=== PATIENT | female | born 1970 | race American Indian/Alaskan Native ===

== ENCOUNTER → 2020-08-27 17:02 | Outpatient (CLI) | payer OTHER, SELFPAY ==
[2020-08-27 17:59] LABS: Blood Urea Nitrogen 22 mg/dL (7-17); Calcium 9.1 mg/dL (8.4-10.2); Carbon Dioxide 30 mmol/L (22-32); Chloride 108 mmol/L (98-107); Estimated Glomerular Filt Rate > 60.0 mL/min (>60); Glucose 84 mg/dL (70-100); HEMOLYSIS < 15 (0-50); Sodium 140 mmol/L (137-145)
[2020-08-27 18:12] LABS: Add Manual Diff / Slide Review NO; Basophils Absolute Auto 0 /uL (0-100); Basophils Percent Auto 0.6 % (0-2); Eosinophils Absolute Auto 200 /uL (0-450); Eosinophils Percent Auto 2.2 % (2-4); Hematocrit 42.2 % (36-46); Lymphocytes Absolute Auto 1200 /uL (1100-4500); Lymphocytes Percent Auto 16.6 % (25-40); Mean Corpuscular HGB Conc 33.2 % (30-36); Mean Corpuscular Volume 87.4 fL (80-100); Monocytes Absolute Auto 700 /uL (0-900); Monocytes Percent Auto 9.2 % (3-14); Neutrophils Absolute Auto 5200 /uL (1500-7000); Neutrophils Percent Auto 71.4 % (50-75); Platelet Count 282 X10^3/uL (150-400); Red Blood Cell Count 4.82 X10^6/uL (4.0-5.2); Red Cell Distribution Width 14.6 % (11.6-14.8); White Blood Cell Count 7.3 X10^3/uL (4.5-11.0)
[2020-08-27 18:18] LABS: Hemoglobin A1C% w Est Avg Glu 5.1 % (4.0-6.0)
== END ==
PROVIDERS: PCP Family Medicine; Referring Provider Orthopaedic Surgery Adult Reconstructive Orthopaedic Surgery; Visit Provider Orthopaedic Surgery Adult Reconstructive Orthopaedic Surgery
DX: Z01.818 Encounter for other preprocedural examination (principal); Z01.812 Encounter for preprocedural laboratory examination; R73.9 Hyperglycemia, unspecified
CPT/HCPCS: 36415; 80048; 83036; 85025; 93005; 93010

== ENCOUNTER → 2020-09-04 13:05 | Outpatient (CLI) | payer OTHER, SELFPAY ==
[2020-09-04 13:56] LABS: COVID19 -Nasal RAPID Negative (Negative)
== END ==
PROVIDERS: PCP Family Medicine; Visit Provider Student in an Organized Health Care Education/Training Program
DX: Z20.822 Contact with and (suspected) exposure to COVID-19 (principal)
CPT/HCPCS: 87635

== ENCOUNTER 2020-09-06 10:10 | Observation (INO) | payer OTHER, SELFPAY ==
[2020-09-05] VITALS (21 sets, daily range): BP systolic 99–126; BP diastolic 50–88; PULSE 76–109; RESP 8–16; TEMP 36.2–37.3; O2SAT 90–100; BMI 36.3
--- NOTE | 2020-09-05 | DI.RAD.S_ITS ---
PROCEDURE: XR HIP W PEL IF DONE RT 2V INDICATIONS: RIGHT HIP ORIF TECHNIQUE: 2 intraoperative views of the hip were acquired. COMPARISON: [facility], CR, XR HIP 2 VIEWS RIGHT, 08/22/2020, 13:06. FINDINGS: 3 screw spanning the right femoral neck are in the expected position. IMPRESSION: Satisfactory appearance of the right hip ORIF. Dictated by: Enrique Barrera M.D. on 09/05/2020 at 14:57 Approved by: Enrique Barrera M.D. on 09/05/2020 at 14:59
[2020-09-05] MEDS: ACETAMINOPHEN 325 MG TABLET 975 MG PO ×2 (11:59→19:19)
[2020-09-05] MEDS: LACTATED RINGERS 1,000 ML 42 ML IV (12:01)
--- NOTE | 2020-09-05 12:49 | PM.PREOP ---
Pre-operative Note COVID-19 COVID-19 status: Negative Result date/Date tested (Pos, Neg/Pending): 09/04/20 Interval Note History & Physical reviewed/Exam performed by Physician: Yes Changes to H&P: No H&P completed within 30 days and has changed as indicated here:: Plan for right hip cannulated screws for femoral neck fracture
[2020-09-05] MEDS: CEFAZOLIN 2 GM/100 ML FROZ.PIGGY IV (13:03)
--- NOTE | 2020-09-05 13:51 | SUR.OPER ---
Supine on padded [place] table with right leg secured in padded positioning boot and suspended in positioning spar, operative leg in traction per surgeon. Left leg in padded well leg morley and secured. Head on one pillow. Arm on non-operative side secured on padded armboard <90 degrees abduction. Arm on operative side padded and resting across chest then secured with tape over sheet. Padded perineal post in place per surgeon.
--- NOTE | 2020-09-05 14:42 | P.OP_ITS ---
Operative Date/Time/Diagnoses Date of procedure: 09/05/20 Time of procedure: 14:42 Pre-op diagnosis: right femoral neck stress fracture Procedure & Clinicians Procedure: right hip cannualted hip pinning Same procedure as scheduled: Yes Indications: right hip stress fx Anesthesia Type: General Operative Notes Findings: Nondisplaced femoral neck fracture Specimen(s): none sent Prosthetic devices, grafts, tissues, transplants, or devices: 1x 7.3mm x 80mm screw 2x 7.3mm x 70mm screw Estimated Blood Loss (mL): 50 Procedure in detail: Patient was met in the preoperative holding area where the site and side of surgery were marked by . informed consent had been reviewed in clinic was also reviewed the preoperative holding area. All last minute questions were answered. Patient was then brought back in the operating room and placed on [place] table. Patient was induced under general anesthesia. The right foot was then placed in a well-padded [place] table boot and the left leg was then pressed placed in the well leg morley. Fluoroscopy was brought in to verify positioning. The right hip was then prepped and draped in normal sterile fashion. A 5 cm long incision in line with the long axis of the femur just distal to the greater trochanter was made in the skin using 10. Blade a new 10. Blade was then used to split the ITB band and blunt dissection was carried down to the lateral aspect of the femur. Initial wire placement was placed freehand under fluoroscopic guidance on both AP and tangential views. The 2nd 3rd screws were then placed through the aiming device. These were also verified on AP and lateral views. The most distal screw measured 80 mm in length and the proximal 2 screws measured 70 mm in length. The most distal screw was placed 1st I overdrilled the cortex with a drill followed by placement of the 80 mm long cannulated screw which had a long thread pattern not. Sec good purchase I then moved to the proximal 2 screws repeating the procedure but was 70 mm screws. Final fluoroscopic images were obtained the wound was thoroughly irrigated with normal saline the ITB band was then closed with interrupted 1. Vicryl and a deep fat suture of 1. Vicryl was then placed. Two Vicryl was then placed in subcutaneous tissue and judie on skin. Followed by an Aquacel dressing. Complications: none Post-operative Condition: stable Disposition: PACU Plan for aftercare: Partial weight bearing RLE, 24 horus psot-op abx
[2020-09-05] MEDS: HYDROMORPHONE 2 MG INJ IV ×4 (14:54→15:26)
[2020-09-05] MEDS: hydrOXYzine 50 MG/ML INJ 25 MG IM (15:07)
[2020-09-05] MEDS: OXYCODONE IR 5 MG TABLET PO ×2 (15:09→21:04)
--- NOTE | 2020-09-05 15:34 | SUR.PHASEI ---
report given to Evangelina Huerta RN
--- NOTE | 2020-09-05 16:26 | SUR.PHASEI ---
Attempted to call report x 3 . RN states she can not take report corridinator states she can not take report. pt has been ready to go upstairs for 35 minutes. Pt is stable and has been.
--- NOTE | 2020-09-05 16:59 | PC.NURSE ---
Addendum entered by [place] Vo R.N. 09/05/20 22:47: Up to commode with partial weight bearing precautions observed. Does c/o increase in right hip pain 10/10 with activity. Returned to bed and oxycodone administered. Limited improvement in pain to right hip so iv dilaudid administered. R.T. has completed I.S. teaching and begun to wean pt off of oxygen. Room air with sleep 90%. Replaced pt's oxygen @ 1L per nc. Addendum entered by [place] Vo R.N. 09/05/20 19:16: Pt wakens briefly for admission process, but then returns quickly to sleep. Unable to remain awake long enough to converse at any length. When asked, rates right hip pain 6/10. Will continue to monitor for wakefulness and less somnulence prior to medicating for pain. Original Note: Pt to room 222 from PACU drowsy, but rousable. Rouses easily to voice. Palpable pedal pulses BL with BL calf scd's in place. Denies nausea. Aquacel dressing dry and intact to right hip. Call light within pt's reach. Ice chips provided. 02 2L per NC d/t sedating meds in PACU to manage pain. Continuous pulse oximeter in place; 97%.
[2020-09-05] MEDS: LACTATED RINGERS 1,000 ML 125 ML IV (17:15)
[2020-09-05] MEDS: CEFAZOLIN 1 GM/50 ML FROZ.PIGGY IV (21:04)
[2020-09-05] MEDS: ASPIRIN EC 81 MG TABLET PO (21:04)
[2020-09-05 21:16] LABS: Hematocrit 41.2 % (36-46); Hemoglobin 13.5 g/dL (12.0-16.0)
[2020-09-05] MEDS: HYDROMORPHONE 0.5 MG INJ 0.2 MG IV (22:39)
[2020-09-06] MEDS: LACTATED RINGERS 1,000 ML 125 ML IV (00:23)
--- NOTE | 2020-09-06 00:32 | PC.NURSE ---
Addendum entered by Roz Rosario R.N. 09/06/20 05:44: Slept most of shift. Now awake and states pain in right hip is 6/10 and aches; medicated with Oxycodone and ice pack applied. Addendum entered by Roz Rosario R.N. 09/06/20 00:35: aquacel dressing is CDI; CMS is intact bilaterally. Original Note: patient is oriented but drowsy. Breath sounds CTA with sat of 95% on oxygen at 1L/min per NC. HRR. Denies nausea. BT present, abdomen is soft and patient states she has passed flatus since return from surgery. Up to [facility] with 1 assist and walker on previous shift (partial weight bearing on right LE) and able to void; denies dysuria, frequency or urgency. Able to move self in bed. Wearing bilateral calf SCD's. Denies pain at present time. Fall risk score is moderate; bed alarm activated for safety although patient has been calling for staff assistance appropriately.
[2020-09-06] MEDS: CEFAZOLIN 1 GM/50 ML FROZ.PIGGY IV (04:55)
[2020-09-06 05:39] VITALS: BP 99/64; PULSE 84; RESP 18; TEMP 36.6; O2SAT 95
[2020-09-06] MEDS: OXYCODONE IR 5 MG TABLET PO ×3 (05:40→16:21)
[2020-09-06 05:41] LABS: Hematocrit 36.1 % (36-46); Mean Corpuscular HGB Conc 33.4 % (30-36); Mean Corpuscular Hemoglobin 28.7 PG (26-34); Platelet Count 278 X10^3/uL (150-400); Red Cell Distribution Width 14.2 % (11.6-14.8); White Blood Cell Count 7.9 X10^3/uL (4.5-11.0)
[2020-09-06] MEDS: ASPIRIN EC 81 MG TABLET PO ×2 (08:16→20:01)
[2020-09-06] MEDS: ACETAMINOPHEN 325 MG TABLET 975 MG PO ×3 (08:17→20:01)
[2020-09-06 08:30] VITALS: BP 100/63; PULSE 88; RESP 14; TEMP 36.7; O2SAT 96
--- NOTE | 2020-09-06 09:45 | P.PN_ITS ---
Subjective Subjective Date Patient Seen: 09/06/20 Interval history: Patient is POD# 1 s/p right hip cannulated hip pinning of nondisplaced femoral neck fracture with Dr. Carmen. Pain moderate, mostly relieved with Oxycodone. Patient has been OOB to bedside commode, otherwise has not mobilized with PT. Has voided appropriately. Tolerating a diet. No chest pain, shortness of breath, nausea or vomiting. Exam Vital Signs (past 8 hours): - 09/06/20 05:39 09/06/20 08:30 Temperature 97.9 F 98.1 F Pulse Rate 84 88 Respiratory Rate 18 14 Blood Pressure 99/64 100/63 Pulse Oximetry 95 96 Oxygen Delivery Method Nasal Cannula Oxygen Flow Rate 0 Narrative Exam Narrative: 50 year old female resting in bed, alert and oriented in no acute distress. Aquacel dressing is CDI. Patient able to dorsiflex and plantar flex the ankle. Calves are soft, nontender bilaterally. Palpable pedal pulse. Objective Labs Result Diagrams: 09/06/20 05:30 Labs: Laboratory Results - last 24 hr 09/05/20 09/06/20 21:04 05:30 WBC 7.9 RBC 4.20 Hgb 13.5 12.0 Hct 41.2 36.1 MCV 86.0 MCH 28.7 MCHC 33.4 RDW 14.2 Plt Count 278 PFSH Medical History Abdominal hernia Surgical History History of laparoscopic cholecystectomy Social History household members: family and children Smoking Status: Never smoker alcohol intake: current Assessment & Plan Assessment & Plan narrative: -POD# 1 s/p right hip cannulated hip pinning of nondisplaced femoral neck fracture. -Partial weight bearing of 50% on the right lower extremity x6 weeks. -DVT prophylaxis ASA 81mg BID x6 weeks. -Oxycodone 10mg Q3hrs added for severe pain as well as Vistaril 25mg Q3hrs for muscle spasms. -Will convert patient to observation as she has not mobilized well yet with PT and has restriction to her weightbearing status. She does have directional drill operator available at home, expect discharge to home tomorrow. Quality VTE Deep Vein Thrombosis/Pulmonary Embolism Present on Admission: No
[2020-09-06] MEDS: OXYCODONE IR 5 MG TABLET 10 MG PO ×2 (10:53→19:04)
--- NOTE | 2020-09-06 11:28 | PT.IIE ---
Current Diagnoses Stress fracture, unspecified femur, initial encounter for fracture (09/05/20) Surgery Performed Operation Date: 09/05/20 13:00 Actual Procedures p ORIF Hip/Cannulated Screws(Right) - Sudhir Carmen MD Surgical History (Last Reviewed 09/06/20 @ 10:24 by Nel Galdamez PA-C) History of laparoscopic cholecystectomy Medical History (Last Reviewed 09/06/20 @ 10:24 by Nel Galdamez PA-C) Abdominal hernia Physical Therapy Inpatient Evaluation/Re-Eval M1 PT/OT-IP Prior Functional Status Start: 09/06/20 13:51 Freq: NEEDED Status: Active Protocol: Document 09/06/20 11:28 AB (Rec: 09/06/20 14:34 AB [id number]) Medical Review Prior Functional Status Medical History Reviewed Yes Communication able to make needs known Mobility and Gait pt stated that she is independent with all mobilities and ambulation without AD Social History Household Members family,children Living Arrangements House Number of Floors (Floors) One Floor Number of Stairs To Enter/Railing? 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 M2 PT-IP Current Condition Start: 09/06/20 13:51 Freq: NEEDED Status: Active Protocol: Document 09/06/20 11:28 AB (Rec: 09/06/20 14:34 AB [id number]) Physical Therapy Current Condition Current Condition Evaluation Date 09/06/20 Treatment Diagnosis R femoral neck fx s/p pinning; difficulty in walking Onset Date 09/05/20 Weight Bearing Status Weight Bearing Status Partial Weight Bearing Allowed Weight Bearing Amount (enter % RLE 50% PWB or #) (%) M3 PT-IP Subjective Start: 09/06/20 13:51 Freq: NEEDED Status: Active Protocol: Document 09/06/20 11:28 AB (Rec: 09/06/20 14:34 AB [id number]) Subjective Physical Therapy Visit Type Type Initial Evaluation Visit Start Time 11:28 Visit Stop Time 11:57 Total Visit Minutes 29 Number of SOD CUTTER Visits 0 Physical Therapy Visit Comments Patient Comments pt is agreeable to do PT Therapy Pain Assessment Pain When Pain Assessed At Rest Pain Present Pain Present Pain Reported Location right hip Intensity 4 Scale Used Numeric (0 - 10) Pain Management Techniques Modification of Treatment,Re- positioning,Timing of Activity with Medications M4 PT-IP Mobility and Gait Start: 09/06/20 13:51 Freq: NEEDED Status: Active Protocol: Document 09/06/20 11:28 AB (Rec: 09/06/20 14:34 AB [id number]) PT-Bed Mobility Assessment Supine to Sit Supine to Sit Standby Assistance PT-Transfer Assessment Sit to and From Stand Sit to and from Stand Minimal Assistance,1 Person Assistance,Use of Upper Extremities Equipment Transfer Assistive Device Gait Belt,Front Wheeled Walker Orthotic/Prosthetic Devices or Brace: No Transfers Transfer Destination Chair Transfer Technique Stand Step Pivot Transfer Ability Level of Assist Minimal Assistance,1 Person Assistance,Use of Upper Extremities Comments Mobility Comments educated on weight bearing restriction of 50% PWB. pt completed supine to sit min a and cues x 2 attempts to complete. pt was able to sit on EOB SBA. completed sit to stand min A PWB on RLE. completed step transfer using FWW to chair min A and cues. positioned pt on the chair and set up for lunch. pt stated that she is tired. set up caregiver training with pt and daughter at 1030 am tomorrow. pt stated that she will call her daughter. PT-Balance Assessment Sitting Balance and Reactions Static Sitting Balance Ability Good Dynamic Sitting Balance Ability Good Standing Balance and Reactions Static Standing Balance Ability Fair Dynamic Standing Balance Ability Fair Device Used FWW M5 PT-IP Objective Assessments Start: 09/06/20 13:51 Freq: NEEDED Status: Active Protocol: Document 09/06/20 11:28 AB (Rec: 09/06/20 14:34 AB [id number]) Orientation Orientation/Cognition Level of Alertness Alert Orientation Name Language Function Ability No Deficits Noted Safety Awareness Understands Safety Issues Memory Description No Deficits Noted Gross Range of Motion Lower Extremity ROM Assessment Within Functional Limits Strength Lower Extremity Strength Assessment Right Impaired Hip 3-/5 Knee 3+/5 Coordination Assessment Gross Coordination Gross Coordination WNL Sensation Assessment Sensation Gross Sensation WNL Muscle Tone Muscle Tone WNL Yes M6 PT-IP Treatment Start: 09/06/20 13:51 Freq: NEEDED Status: Active Protocol: Document 09/06/20 11:28 AB (Rec: 09/06/20 14:34 AB [id number]) Physical Therapy Treatment Exercises Exercises Heel Slides Education Education Provided Precautions,Weight Bearing Status,Post-Op Packet,Safety M7 PT-IP Assessment and Plan Start: 09/06/20 13:51 Freq: NEEDED Status: Active Protocol: Document 09/06/20 11:28 AB (Rec: 09/06/20 14:34 [id number]) PT Summary Assessment and Plan Potential Rehabilitation Potential Good Status of Condition at Evaluation Stable Summary Impairments Pain,ROM,Strength,Balance, Coordination,Sensation,Tone, Cognition,Bed Mobility, Transfers,Gait,Activity Tolerance Assessment Summary pt requiring min A with mobility. set up caregiver training for tomorrow at 1030am with pt and pt's daughter. pt will require HHPT and eventually outpt PT. will continue to assess progress. Goals Bed Mobility Goal Independent Transfer Goal Independent,Front Wheeled Walker Gait Goal Independent,Front Wheel Walker Gait Distance 50 Days to Meet Goals 5 Frequency of Treatment Frequency Of Treatment Twice a Day Treatment Plan Physical Therapy Treatment Plan Bed Mobility Training,Transfer Training,Gait Training, Therapeutic Exercise,Balance Retraining,Post Op Education, Discharge Planning,Hot or Cold Pack,Neuromuscular Re-ed, Coordination Retraining,Manual Therapy Other Recommendations and Next Treatment ambulation; caregiver training Focus 09/07/20 @ 1030 am Recommendations To Nursing Amount of Assist Needed 1 Person Assist Discharge Recommendations PT Discharge Recommendations Home with Assistance,Home Health Transportation Needs at Discharge Private Vehicle
--- NOTE | 2020-09-06 14:15 | CM.DANOTE ---
Discharge Planning/Care Management DCP: assessment: case received, EMR reviewed and met with pt. Introduced self and role. She is found sitting up in bedside chair, knitting. Appears comfortable. Pt is a 50 year old female who admitted yesterday for a scheduled Surgery: R hip pinning: Surgeon: Dr. Carmen. Payer: [facility] and [facility]. PCP: Kely Tanner Pt today is post op day one: Pt has worked with her. OT order is obtained. Pt confirms her plan is for home with her daughter Radha's assist. She has crutches at home. Is currently using a FWW. Radha will be here tomorrow morning for caregiver training. Pt reports this is an extension of an L&I claim for injury that happened in March. She works at the [employer]. She requested info re how to followup in terms of getting clinical records to her insurance and says they have mailed information re this to her home. She is provided the direct line to Medical Records dept and will follow up on this once she gets home and receives the letter. P: home when stable, likely tomorrow after more therapy and caregiver training. CM Discharge Assessment Start: 09/06/20 14:13 Freq: Status: Active Protocol: Document 09/06/20 14:13 ITV (Rec: 09/06/20 14:15 ITV [id number]) Discharge Planning Assessment Advance Directives? No History Provided By Patient,Medical Record Has Patient been admitted in last 30 No days? Prior Living Arrangements House Household Members family,children Comment Lives with daughter Radha [facility]: [phone] Independent with ADL's Yes Is patient alert and oriented? Yes Discharge Plan Home
--- NOTE | 2020-09-06 14:57 | PT.IPTN ---
Current Diagnoses Stress fracture, unspecified femur, initial encounter for fracture (09/05/20) Surgery Performed Operation Date: 09/05/20 13:00 Actual Procedures p ORIF Hip/Cannulated Screws(Right) - Sudhir Carmen MD Physical Therapy Treatment Note M2 PT-IP Current Condition Start: 09/06/20 13:51 Freq: NEEDED Status: Active Protocol: Document 09/06/20 11:28 AB (Rec: 09/06/20 14:34 AB [id number]) Physical Therapy Current Condition Current Condition Evaluation Date 09/06/20 Treatment Diagnosis R femoral neck fx s/p pinning; difficulty in walking Onset Date 09/05/20 Weight Bearing Status Weight Bearing Status Partial Weight Bearing Allowed Weight Bearing Amount (enter % RLE 50% PWB or #) (%) M3 PT-IP Subjective Start: 09/06/20 13:51 Freq: NEEDED Status: Active Protocol: Document 09/06/20 14:57 AB (Rec: 09/06/20 16:09 AB [id number]) Subjective Physical Therapy Visit Type Type Treatment Note Visit Start Time 14:57 Visit Stop Time 15:24 Total Visit Minutes 27 Number of SHOER Visits 0 Physical Therapy Visit Comments Patient Comments pt is agreeable to do PT Therapy Pain Assessment Pain When Pain Assessed At Rest Pain Present Pain Present Pain Reported Location right hip Intensity 4 Scale Used Numeric (0 - 10) Pain Management Techniques Apply Cold,Modification of Treatment,Re-positioning, Timing of Activity with Medications M4 PT-IP Mobility and Gait Start: 09/06/20 13:51 Freq: NEEDED Status: Active Protocol: Document 09/06/20 14:57 AB (Rec: 09/06/20 16:09 AB [id number]) PT-Bed Mobility Assessment Sit to Supine Sit to Supine Standby Assistance PT-Transfer Assessment Sit to and From Stand Sit to and from Stand Contact Guard Assistance,Use of Upper Extremities Equipment Transfer Assistive Device Gait Belt,Front Wheeled Walker Orthotic/Prosthetic Devices or Brace: No Transfers Transfer Destination Bed,Toilet Transfer Technique ambulated using FWW Transfer Ability Level of Assist Contact Guard Assistance,1 Person Assistance,Use of Upper Extremities Comments Mobility Comments completed sit to stand from chair CGA and ambulated to the toilet using FWW CGA. pt is able to ambulate with PWB on RLE with cues to maintain heel off floor and use UE more for support and LLE. pt completed toileting and was able to do hygiene care in sitting position. completed sit to stand CGA and ambulated to the sink using FWW CGA. was able to maintain standing CGA while completing handwashing. requested to go back to bed and ambulated to the bed using FWW CGA. completed sit to supine SBA and cues. required increase time to complete task. positioned pt in bed. call light and table placed within reach. educated pt on safety and will use w/c for long distance mobility. Gait Assessment Gait Gait Assistance Required: Contact Guard Assist Distance (Feet) 12 Able to Maintain Weight Bearing Status Yes During Gait Assistive Devices Assistive Device Gait Belt,Front Wheeled Walker Orthotic/Prosthetic Devices or Brace: No Gait Deviations General Gait Pattern Decreased Stride Length, Decreased Feet Clearance Factors Limiting Gait Function Factors Limiting Gait Function Decreased Activity Tolerance, Decreased Strength,Limited Range of Motion,Pain,Poor Balance M5 PT-IP Objective Assessments Start: 09/06/20 13:51 Freq: NEEDED Status: Active Protocol: Document 09/06/20 11:28 AB (Rec: 09/06/20 14:34 AB [id number]) Orientation Orientation/Cognition Level of Alertness Alert Orientation Name Language Function Ability No Deficits Noted Safety Awareness Understands Safety Issues Memory Description No Deficits Noted Gross Range of Motion Lower Extremity ROM Assessment Within Functional Limits Strength Lower Extremity Strength Assessment Right Impaired Hip 3-/5 Knee 3+/5 Coordination Assessment Gross Coordination Gross Coordination WNL Sensation Assessment Sensation Gross Sensation WNL Muscle Tone Muscle Tone WNL Yes M6 PT-IP Treatment Start: 09/06/20 13:51 Freq: NEEDED Status: Active Protocol: Document 09/06/20 14:57 AB (Rec: 09/06/20 16:09 AB [id number]) Physical Therapy Treatment Education Education Provided Precautions,Weight Bearing Status,Safety M7 PT-IP Assessment and Plan Start: 09/06/20 13:51 Freq: NEEDED Status: Active Protocol: Document 09/06/20 14:57 AB (Rec: 09/06/20 16:09 AB [id number]) PT Summary Assessment and Plan Potential Rehabilitation Potential Good Summary Impairments Pain,ROM,Strength,Balance,Bed Mobility,Transfers,Gait, Activity Tolerance Progress Towards Goals Progressing Toward Goals Assessment Summary pt is progressing with mobility but limited due to weight bearing restriction but able to follow directions. caregiver training set up for tomorrow at 1030 am. pt may go home with caregiver assist and will benefit from HHPT/ outpt PT. Goals Bed Mobility Goal Independent Transfer Goal Independent,Front Wheeled Walker Gait Goal Independent,Front Wheel Walker Gait Distance 50 Days to Meet Goals 5 Frequency of Treatment Frequency Of Treatment Twice a Day Treatment Plan Physical Therapy Treatment Plan Bed Mobility Training,Transfer Training,Gait Training, Therapeutic Exercise,Balance Retraining,Post Op Education, Discharge Planning,Hot or Cold Pack,Neuromuscular Re-ed, Coordination Retraining,Manual Therapy Other Recommendations and Next Treatment ambulation; caregiver training Focus 09/07/20 @ 1030 am Recommendations To Nursing Amount of Assist Needed 1 Person Assist Discharge Recommendations PT Discharge Recommendations Home with Assistance,Home Health Transportation Needs at Discharge Private Vehicle
[2020-09-06 15:20] VITALS: BP 104/69; PULSE 88; RESP 20; TEMP 36.8; O2SAT 96
[2020-09-06 19:30] VITALS: BP 116/60; PULSE 97; RESP 18; TEMP 36.8; O2SAT 96
[2020-09-06] MEDS: hydrOXYzine pamoate 25 MG CAPSULE PO (20:04)
[2020-09-07 00:15] VITALS: BP 101/69; PULSE 78; RESP 16; TEMP 36.4; O2SAT 95
--- NOTE | 2020-09-07 00:20 | PC.NURSE ---
patient is alert and oriented. Breath sounds CTA with RA sat of 95%. HRR. Denies nausea. BT present and abdomen is soft; passing flatus. Denies dysuria, frequency or urgency with urination. Able to move self in bed. Up to bathroom with walker and 1 assist; states she is adhering to PWB on right LE. Aquacel dressing is CDI. CMS is intact except patient only able to lift right LE slightly off bed. Non pitting edema in right foot noted. States pain is currently 2/10 and tolerable; has ice pack to hip. Fall risk score is moderate; bed alarm is activated.
[2020-09-07 05:19] VITALS: BP 118/73; PULSE 78; RESP 16; TEMP 36; O2SAT 96
[2020-09-07 07:00] VITALS: BP 118/73; PULSE 91; RESP 16; TEMP 37; O2SAT 93
[2020-09-07] MEDS: OXYCODONE IR 5 MG TABLET PO ×2 (08:47→12:20)
[2020-09-07] MEDS: SODIUM CHLORIDE 0.9% FLUSH 10 ML IV (08:47)
[2020-09-07] MEDS: ACETAMINOPHEN 325 MG TABLET 975 MG PO (08:48)
[2020-09-07] MEDS: ASPIRIN EC 81 MG TABLET PO (08:48)
--- NOTE | 2020-09-07 10:17 | PM.PN.1 ---
Exam Vital Signs (past 8 hours): - 09/07/20 05:19 09/07/20 07:00 Temperature 96.8 F L 98.6 F Pulse Rate 78 91 H Respiratory Rate 16 16 Blood Pressure 118/73 118/73 Pulse Oximetry 96 93 Oxygen Delivery Method Room Air Oxygen Flow Rate 0 Objective Labs Result Diagrams: 09/06/20 05:30 [facility] Medical History Abdominal hernia Surgical History History of laparoscopic cholecystectomy Social History household members: family and children Smoking Status: Never smoker alcohol intake: current Assessment & Plan Assessment & Plan narrative: Patient is admitted after surgery. Patient has been stable and progressing with physical therapy. Patient is neurovascularly intact on exam. Patient has no signs or symptoms of DVT. Patient's dressing is clean dry and intact. Will plan for discharge today to home. Quality VTE Deep Vein Thrombosis/Pulmonary Embolism Present on Admission: No
--- NOTE | 2020-09-07 11:40 | PT.IPTN ---
Current Diagnoses Stress fracture, unspecified femur, initial encounter for fracture (09/06/20) Surgery Performed Operation Date: 09/05/20 13:00 Actual Procedures p ORIF Hip/Cannulated Screws(Right) - Sudhir Carmen MD Physical Therapy Treatment Note M2 PT-IP Current Condition Start: 09/06/20 13:51 Freq: NEEDED Status: Active Protocol: Document 09/06/20 11:28 AB (Rec: 09/06/20 14:34 AB [id number]) Physical Therapy Current Condition Current Condition Evaluation Date 09/06/20 Treatment Diagnosis R femoral neck fx s/p pinning; difficulty in walking Onset Date 09/05/20 Weight Bearing Status Weight Bearing Status Partial Weight Bearing Allowed Weight Bearing Amount (enter % RLE 50% PWB or #) (%) M3 PT-IP Subjective Start: 09/06/20 13:51 Freq: NEEDED Status: Active Protocol: Document 09/07/20 11:36 AW (Rec: 09/07/20 11:46 AW [id number]) Subjective Physical Therapy Visit Type Type Treatment Note Visit Start Time 11:18 Visit Stop Time 11:36 Total Visit Minutes 18 Notes Pt's daughter, Lenora, present for CGT. 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 Therapy Pain Assessment Pain When Pain Assessed During Mobility Pain Present Pain Present Pain Reported Location right hip Intensity 5 Scale Used Numeric (0 - 10) Pain Management Techniques Apply Cold,Modification of Treatment,Re-positioning, Timing of Activity with Medications M4 PT-IP Mobility and Gait Start: 09/06/20 13:51 Freq: NEEDED Status: Active Protocol: Document 09/07/20 11:36 AW (Rec: 09/07/20 11:46 AW [id number]) PT-Bed Mobility Assessment Supine to Sit Supine to Sit Standby Assistance Sit to Supine Sit to Supine Standby Assistance Scooting Scooting to Edge of Bed Standby Assistance PT-Transfer Assessment Sit to and From Stand Sit to and from Stand Contact Guard Assistance,Use of Upper Extremities Equipment Transfer Assistive Device Gait Belt,Front Wheeled Walker Orthotic/Prosthetic Devices or Brace: No Transfers Transfer Destination Bed,Toilet Transfer Technique ambulated using FWW Transfer Ability Level of Assist Contact Guard Assistance,1 Person Assistance,Use of Upper Extremities Comments Mobility Comments Pt getting up with RN to use toilet as PT arrived. PT took over and assisted pt to toilet with FWW SBA. Pt able to maintain 50% PWB RLE with toe- touch strategy. Pt transferred to and from the toilet using left-side grab bar CGA and stated she has grab bars around toilet at home. Pt's daughter provided assist to get off the toilet and then helped the pt ambulate around the room and to the sink to wash hands. In standing, pt instructed not to lean toward her right side when without UE support on sink or walker. Pt then ambulated CGA with FWW to the bed and completed sit < > supine with use of LLE to lift RLE SBA. Pt was left sitting EOB with her daughter in the room. Gait Assessment Gait Gait Assistance Required: Standby Assistance,Contact Guard Assist Distance (Feet) 25 Able to Maintain Weight Bearing Status Yes During Gait Assistive Devices Assistive Device Gait Belt,Front Wheeled Walker Orthotic/Prosthetic Devices or Brace: No Gait Deviations General Gait Pattern Decreased Stride Length, Decreased Feet Clearance Factors Limiting Gait Function Factors Limiting Gait Function Decreased Activity Tolerance, Decreased Strength,Limited Range of Motion,Pain,Poor Balance Comments Gait Comments Pt's daughter able to provide appropriate level of assist. Stair Climbing Assessment Comments Stair Climbing Comments No stairs at home. PT-Balance Assessment Sitting Balance and Reactions Static Sitting Balance Ability Good Dynamic Sitting Balance Ability Good Standing Balance and Reactions Static Standing Balance Ability Good Dynamic Standing Balance Ability Fair Device Used FWW M5 PT-IP Objective Assessments Start: 09/06/20 13:51 Freq: NEEDED Status: Active Protocol: Document 09/06/20 11:28 AB (Rec: 09/06/20 14:34 AB [id number]) Orientation Orientation/Cognition Level of Alertness Alert Orientation Name Language Function Ability No Deficits Noted Safety Awareness Understands Safety Issues Memory Description No Deficits Noted Gross Range of Motion Lower Extremity ROM Assessment Within Functional Limits Strength Lower Extremity Strength Assessment Right Impaired Hip 3-/5 Knee 3+/5 Coordination Assessment Gross Coordination Gross Coordination WNL Sensation Assessment Sensation Gross Sensation WNL Muscle Tone Muscle Tone WNL Yes M6 PT-IP Treatment Start: 09/06/20 13:51 Freq: NEEDED Status: Active Protocol: Document 09/07/20 11:36 AW (Rec: 09/07/20 11:46 AW [id number]) Physical Therapy Treatment Exercises Exercises Gluteal Sets,Heel Slides Education Education Provided Weight Bearing Status,Safety M7 PT-IP Assessment and Plan Start: 09/06/20 13:51 Freq: NEEDED Status: Active Protocol: Document 09/07/20 11:36 AW (Rec: 09/07/20 11:46 AW [id number]) PT Summary Assessment and Plan Potential Rehabilitation Potential Good Summary Impairments Pain,ROM,Strength,Balance,Bed Mobility,Transfers,Gait, Activity Tolerance Progress Towards Goals Progressing Toward Goals Assessment Summary Pt is able to follow directions and maintain 50% PWB RLE during transfers and ambulation. Daughter Lucia was present for caregiver training and was able to don gait belt and provide appropriate level of safe assist. All questions answered about home mobility and FWW sizing. Pt is safe for discharge home with family assist and HH. Goals Bed Mobility Goal Independent Transfer Goal Independent,Front Wheeled Walker Gait Goal Independent,Front Wheel Walker Gait Distance 50 Days to Meet Goals 4 Frequency of Treatment Frequency Of Treatment Discharge Treatment Plan Physical Therapy Treatment Plan Bed Mobility Training,Transfer Training,Gait Training, Therapeutic Exercise,Balance Retraining,Post Op Education, Discharge Planning,Hot or Cold Pack,Neuromuscular Re-ed, Coordination Retraining,Manual Therapy Recommendations To Nursing Amount of Assist Needed 1 Person Assist Discharge Recommendations PT Discharge Recommendations Home with Assistance,Home Health Transportation Needs at Discharge Private Vehicle
--- NOTE | 2020-09-07 12:31 | PC.NURSE ---
Pt and daughter had caregiver training with PT today, and cleared for d/c. Discharge education given to pt, discussed- toe touch weight bearing precautions, hip precautions, f/u appts, s/s of infection, medication safety, and reasons to contact medical professional. Pt dressed with CLINICAL RN's assistance. IV removed, intact. All belongings, including printed prescriptions sent with pt. Pt left via w/c by CLINICAL RN to daughter's POV.
== END 2020-09-07 12:33 | disposition home or self-care (01) ==
LOC: OR 09-07 09:01 → AC 09-07 09:01
PROVIDERS: Admitting Provider Orthopaedic Surgery Adult Reconstructive Orthopaedic Surgery; PCP Family Medicine; Referring Provider Orthopaedic Surgery Adult Reconstructive Orthopaedic Surgery; Visit Provider Orthopaedic Surgery Adult Reconstructive Orthopaedic Surgery
PROC: (CPT 27236; principal; 2020-09-05 13:00)
DX: M84.351A Stress fracture, right femur, initial encounter for fracture (principal); W01.0XXA Fall on same level from slipping, tripping and stumbling without subsequent striking against object, initial encounter; Y93.E9 Activity, other interior property and clothing maintenance; Y92.9 Unspecified place or not applicable; Y99.0 Civilian activity done for income or pay
CPT/HCPCS: 27236; 36415; 73502; 76000; 85014; 85018; 85027; 94760; 97161; 97530; G0378; J0690; J1100; J1170; J2250; J2405; J2704; J3010; J3410

== ENCOUNTER 2023-01-03 16:44 | Emergency (ER) | payer OTHER, SELFPAY ==
[2020-09-05 19:04] VITALS: BMI 36.3
[2023-01-03] VITALS (8 sets, daily range): BP systolic 112–127; BP diastolic 65–74; PULSE 91–114; RESP 18–27; TEMP 37.2; O2SAT 92–97; BMI 38.3
[2023-01-03] MEDS: ONDANSETRON 4 MG/2 ML INJ IV (17:36)
[2023-01-03] MEDS: SODIUM CHLORIDE 0.9% 1,000 ML 1000 ML IV ×2 (17:56→18:57)
[2023-01-03 17:57] LABS: Add Manual Diff / Slide Review NO; Basophils Absolute Auto 0 /uL (0-100); Basophils Percent Auto 0.1 % (0-2); Eosinophils Absolute Auto 0 /uL (0-450); Hematocrit 43.7 % (36-46); Lymphocytes Absolute Auto 100 /uL (1100-4500); Lymphocytes Percent Auto 1.2 % (25-40); Mean Corpuscular HGB Conc 34.3 % (30-36); Mean Corpuscular Hemoglobin 28.8 PG (26-34); Mean Corpuscular Volume 84.1 fL (80-100); Monocytes Absolute Auto 200 /uL (0-900); Monocytes Percent Auto 1.5 % (3-14); Neutrophils Absolute Auto 10400 /uL (1500-7000); Neutrophils Percent Auto 97.2 % (50-75); Platelet Count 267 X10^3/uL (150-400); Red Cell Distribution Width 14.9 % (11.6-14.8); White Blood Cell Count 10.7 X10^3/uL (4.5-11.0)
--- NOTE | 2023-01-03 17:57 | ED_ITS ---
HPI - Nausea/Vomiting/Diarrhea General Chief complaint: Nausea/Vomiting/Diarrhea Stated complaint: NVD, Chest Pain, Ear Pain Time Seen by Provider: 01/03/23 17:52 History of Present Illness HPI Narrative: Patient is a 52-year-old female without significant past medical history but has had a cholecystectomy hernia and hernia repair presents today with nausea vomiting and diarrhea. She reports that she was well yesterday and last night woke up this morning around 5 and 6 unable to keep any fluids down throughout the day. Multiple episodes of vomiting and diarrhea not bloody. Some abdominal cramping. She is a little dizzy and lightheaded she feels like her mouth is dry. Related Data Home Medications Medication Instructions Recorded Confirmed acetaminophen 500 mg tablet 1,000 mg PO BID 09/05/20 09/05/20 (Tylenol Extra Strength) ibuprofen 600 mg tablet 1,200 mg PO BID 09/05/20 09/05/20 Previous Rx's Medication Instructions Recorded aspirin 81 mg tablet,delayed 81 mg PO BID #40 tabs 09/06/20 release hydroxyzine pamoate 25 mg capsule 25 mg PO Q4HR PRN Muscle Spasm #40 09/06/20 caps oxycodone 5 mg tablet 5 mg PO Q3HR PRN Pain, Moderate 09/06/20 (4-6) #60 tabs ondansetron 4 mg disintegrating 4 mg PO Q8H PRN nausea and 01/03/23 tablet vomiting #10 tabs Allergies Allergy/AdvReac Type Severity Reaction Status Date / Time No Known Drug Allergies Allergy Verified 09/05/20 11:55 Review of Systems Review of Systems ROS Unobtainable: All systems reviewed & are unremarkable except as noted in HPI and below Patient History Medical History Abdominal hernia Surgical History History of laparoscopic cholecystectomy Social History household members: family and children Smoking Status: Never smoker alcohol intake: current Smoking Status: Never smoker alcohol intake frequency: holidays/special occasions only Substance Use Type: does not use Exam Initial Vital Signs Initial Vital Signs: Vital Signs Temperature 99 F 01/03/23 16:53 Pulse Rate 114 H 01/03/23 16:53 Respiratory Rate 18 01/03/23 16:53 Blood Pressure 127/67 01/03/23 16:53 Pulse Oximetry 97 01/03/23 16:53 Oxygen Delivery Method Room Air 01/03/23 16:53 GENERAL: Alert week 52-year-old female and in [no acute] distress. HEENT: Head atraumatic,EOMI, pupils reactive, face symmetric, [moist] mucous membranes CARDIOVASCULAR: Regular rate and rhythm without murmurs, rubs or gallops. RESPIRATORY: Breath sounds equal bilaterally, no wheezes rales or rhonchi. ABDOMEN: Soft, nondistended no localized tenderness no guarding no rebound EXTREMITIES: Normal range of motion, no clubbing or edema. Neurovascularly intact NEUROLOGICAL: Alert and oriented x4.Normal gait and speech. SKIN: Warm, dry, no laceration, no petechiae, no rashes or lesions. Course Orders Ordered: Discontinued Medications Sodium Chloride (Normal Saline 0.9%) 1,000 mls @ 1,000 mls/hr IV BOLUS ONE Stop: 01/03/23 18:46 Last Infusion: 01/03/23 18:52 Dose: 0 mls/hr Documented By: Admin: 01/03/23 17:56 Dose: 1,000 mls/hr Documented By: ZORAN Sodium Chloride (Normal Saline 0.9%) 1,000 mls @ 1,000 mls/hr IV BOLUS ONE Stop: 01/03/23 18:56 Last Infusion: 01/03/23 19:52 Dose: 0 mls/hr Documented By: Admin: 01/03/23 18:57 Dose: 1,000 mls/hr Documented By: ZORAN Ketorolac Tromethamine (Ketorolac 30 Mg/Ml Vial) 15 mg IV NOW ONE Stop: 01/03/23 17:58 Last Admin: 01/03/23 18:32 Dose: 15 mg Documented By: ZORAN Ondansetron HCl (Ondansetron 4 Mg Odt) 4 mg PO NOW PRN PRN Reason: Nausea And Vomiting Ondansetron HCl (Ondansetron 4 Mg/2 Ml Inj) 4 mg IV NOW PRN PRN Reason: Nausea And Vomiting Last Admin: 01/03/23 17:36 Dose: 4 mg Documented By: ZORAN Ondansetron HCl (Ondansetron 4 Mg Odt Prepack) 1 bottle MISC SEEINSTR ONE Stop: 01/03/23 19:51 Last Admin: 01/03/23 20:03 Dose: 1 bottle Documented By: SUSHMA Vital Signs Vital signs: Vital Signs - 8 hr 01/03/23 16:53 01/03/23 17:47 01/03/23 17:47 Temperature 99 F Pulse Rate 114 H 109 H Respiratory Rate 18 Blood Pressure 127/67 125/74 Pulse Oximetry 97 96 Oxygen Delivery Method Room Air 01/03/23 18:00 01/03/23 18:30 01/03/23 19:00 Temperature Pulse Rate 104 H 104 H 101 H Respiratory Rate 23 Blood Pressure Pulse Oximetry 94 92 92 Oxygen Delivery Method MDM - Nausea/Vomiting/Diarrhea Lab Data 01/03/23 17:40 01/03/23 17:40 Labs: Lab Results 01/03/23 01/03/23 Range/Units 17:40 17:40 WBC 10.7 (4.5-11.0) X10^3/uL RBC 5.20 (4.0-5.2) X10^6/uL Hgb 15.0 (12.0-16.0) g/dL Hct 43.7 (36-46) % MCV 84.1 (80-100) fL MCH 28.8 (26-34) PG MCHC 34.3 (30-36) % RDW 14.9 H (11.6-14.8) % Plt Count 267 (150-400) X10^3/uL Neut % (Auto) 97.2 H (50-75) % Lymph % (Auto) 1.2 L (25-40) % [place] % (Auto) 1.5 L (3-14) % Eos % (Auto) 0.0 L (2-4) % Baso % (Auto) 0.1 (0-2) % Neut # (Auto) 48524 H (9529-4407) /uL Lymph # (Auto) 100 L (6407-7474) /uL [place] # (Auto) 200 (0-900) /uL Eos # (Auto) 0 (0-450) /uL Baso # (Auto) 0 (0-100) /uL Sodium 142 (137-145) mmol/L Potassium 3.8 (3.4-5.1) mmol/L Chloride 110 H (98-107) mmol/L Carbon Dioxide 23 (22-32) mmol/L BUN 13 (7-17) mg/dL Creatinine 0.72 (0.52-1.04) mg/dL Estimated GFR > 60 (>60) mL/min BUN/Creatinine Ratio 18.1 (6-22) Glucose 114 H (70-100) mg/dL Calcium 8.8 (8.4-10.2) mg/dL Total Bilirubin 0.8 (0.2-1.3) mg/dL AST 33 (14-36) IU/L ALT 29 (<35) IU/L Alkaline Phosphatase 116 (38-126) U/L Total Protein 8.6 H (6.3-8.2) g/dL Albumin 4.3 (3.5-5.0) g/dL Globulin 4.3 H (1.7-4.1) g/dL Albumin/Globulin Ratio 1.0 (1.0-2.8) Lipase 73 (23-300) U/L ECG Data Interpretation: Normal sinus rhythm rate 98 VT interval 132 QRS [address] changes no T- wave inversions MDM Narrative Medical decision making narrative: Patient 52-year-old female without significant past medical history presenting today with nausea vomiting diarrhea ongoing for about 12 hours. Mildly tachycardic. No significant leukocytosis or anemia, no electrolyte abnormality no IAN. She is given fluids Zofran and Toradol. Overall now tolerating p.o. fluids. Symptoms are consistent with a gastroenteritis. Abdomen is nontender no concern for obstruction. Discharge Plan Departure Patient Disposition: Home Clinical Impression: Gastroenteritis Instructions: DI for Viral Gastroenteritis -- Adult Activity Restrictions/Additional Instructions: *You have been diagnosed with gastroenteritis *What to do: Increase fluid intake as tolerated recommend Gatorade or Gatorade like product. May increase diet as tolerated. *Continue to take medications as directed Zofran 4 mg every 8 hours if needed for nausea or vomiting--> Sent to [facility] *Follow up with your primary care provider in 2-3 days or call [phone] *Return to ER if you should have increasing nausea vomiting increasing pain not tolerating fluids passing out or any new, worsening or concerning symptoms Prescriptions: New ondansetron 4 mg tablet,disintegrating 4 mg PO Q8H PRN (Reason: nausea and vomiting) Qty: 10 0RF No Action acetaminophen [Tylenol Extra Strength] 500 mg Tablet 1,000 mg PO BID ibuprofen 600 mg Tablet 1,200 mg PO BID aspirin 81 mg Tablet,Delayed Release (Dr/Ec) 81 mg PO BID Qty: 40 0RF oxycodone 5 mg Tablet 5 mg PO Q3HR PRN (Reason: Pain, Moderate (4-6)) Qty: 60 0RF hydroxyzine pamoate 25 mg Capsule 25 mg PO Q4HR PRN (Reason: Muscle Spasm) Qty: 40 0RF Referrals: Kely Tanner MD [Primary Care Provider] - Stand Alone Forms: Patient Portal/API
[2023-01-03 18:09] LABS: Alanine Aminotransferase 29 IU/L (<35); Albumin 4.3 g/dL (3.5-5.0); Alkaline Phosphatase 116 U/L (38-126); Aspartate Aminotransferase 33 IU/L (14-36); BUN Creatinine Ratio 18.1 (6-22); Bilirubin Total 0.8 mg/dL (0.2-1.3); Blood Urea Nitrogen 13 mg/dL (7-17); Calcium 8.8 mg/dL (8.4-10.2); Carbon Dioxide 23 mmol/L (22-32); Chloride 110 mmol/L (98-107); Estimated Glomerular Filt Rate > 60 mL/min (>60); Globulin 4.3 g/dL (1.7-4.1); Glucose 114 mg/dL (70-100); HEMOLYSIS < 15 (0-50); Lipase 73 U/L (23-300); Potassium 3.8 mmol/L (3.4-5.1); Sodium 142 mmol/L (137-145); Total Protein 8.6 g/dL (6.3-8.2)
[2023-01-03] MEDS: KETOROLAC 30 MG/ML VIAL 15 MG IV (18:32)
[2023-01-03] MEDS: ONDANSETRON 4 MG ODT PREPACK 1 BOTTLE MISC (20:03)
== END 2023-01-03 20:28 | disposition home or self-care (01) ==
PROVIDERS: Emergency Medicine; Emergency Provider Emergency Medicine; PCP Family Medicine
DX: K52.9 Noninfective gastroenteritis and colitis, unspecified (principal)
CPT/HCPCS: 36415; 80053; 83690; 85025; 93005; 93010; 96374; 96375; 99284; J1885; J2405

== ENCOUNTER 2023-03-04 21:01 | Emergency (ER) | payer SELFPAY ==
[2020-09-05 19:04] VITALS: BMI 36.3
[2023-03-04 21:10] VITALS: BP 130/80; PULSE 90; RESP 18; TEMP 36.6; O2SAT 98
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
[2023-03-04] MEDS: diazePAM 5 MG TABLET PO (23:50)
[2023-03-04 23:54] VITALS: BP 137/71; PULSE 80; RESP 18; O2SAT 99
== END 2023-03-04 23:56 | disposition home or self-care (01) ==
PROVIDERS: Emergency Provider Emergency Medicine; PCP Family Medicine
DX: R45.851 Suicidal ideations (principal); F43.0 Acute stress reaction
CPT/HCPCS: 99283

== ENCOUNTER → 2024-05-17 14:10 | Outpatient (CLI) | payer OTHER, SELFPAY ==
[2020-09-05 19:04] VITALS: BMI 36.3
--- NOTE | 2024-05-17 14:16 | DI.RAD.S_ITS ---
PROCEDURE: XR KNEE LT 3V INDICATIONS: Pain in left knee, injury TECHNIQUE: 3 views of the knee were acquired. COMPARISON: None. FINDINGS: Bones: Minimal degenerative changes. No acute displaced fracture or dislocation. Soft tissues: Possible small joint effusion. IMPRESSION: No acute radiographic abnormality. Possible small joint effusion. If there is high concern for further derangement, consider MRI evaluation. Dictated by: Kaleb Chandler M.D. on 05/17/2024 at 16:56 Approved by: Kaleb Chandler M.D. on 05/17/2024 at 16:56
== END ==
LOC: RAD 14:14
PROVIDERS: PCP Family Medicine; Referring Provider Nurse Practitioner Family; Visit Provider Nurse Practitioner Family
DX: M25.362 Other instability, left knee (principal); M25.562 Pain in left knee; M25.462 Effusion, left knee
CPT/HCPCS: 73562

== ENCOUNTER → 2024-06-27 15:51 | Outpatient (CLI) | payer MEDICAID, SELFPAY ==
[2020-09-05 19:04] VITALS: BMI 36.3
--- NOTE | 2024-06-27 16:10 | DI.MRI.S_ITS ---
PROCEDURE: MR KNEE LT WO CON INDICATIONS: pain in knee TECHNIQUE: Noncontrast sagittal PD fast spin echo and T2 fast spin echo with fat saturation, sagittal 3-D FLASH with fat saturation; coronal T1 spin echo and PD fast spin echo with fat saturation, and axial PD fast spin echo with fat saturation through the knee. COMPARISON: [facility], CR, XR KNEE LT 3V, 05/17/2024, 14:16. FINDINGS: Image quality: Excellent. Menisci: The medial meniscus is intact. Complex oblique tear involving anterior horn of lateral meniscus extending to superior articulating surface is seen. The meniscal root ligaments appear intact. Cruciate ligaments: The anterior cruciate ligament is markedly thickened, no ACL rupture. The PCL is intact.. Medial structures: The medial collateral ligament appears mildly thickened. Visualized portions of the pes anserinus tendons appear normal. No abnormal bursal fluid. Lateral structures: The lateral collateral ligament is thickened at its femoral insertion. The long and short heads of the biceps femoris tendon appear intact. The popliteus tendon appears normal. Iliotibial band appears normal. Anterior structures: The quadriceps and patellar tendons appear intact. Patellar alignment is normal. No femoral trochlear dysplasia or ventral trochlear prominence. No edema in the infrapatellar fat pad. Bones and cartilage: No bone marrow contusions or fractures. 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 Patellar cartilage is intact. Joint space: There is small knee joint fluid. There is popliteal cyst measures 3 x 1.5 x 5.4 cm in size.. Normal appearing synovial plicae are incidentally noted. IMPRESSION: 1. Complex oblique tear involving anterior horn of lateral meniscus extending to superior articulating surface. No medial meniscal tear. 2. Myxoid degenerative changes and low-grade intrasubstance partial-thickness tear involving anterior cruciate ligament. No ACL rupture. The PCL is intact. 3. Low-grade MCL sprain. Low to moderate grade LCL sprain/partial-thickness tear at its femoral insertion. 4. 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 Patellar cartilage is intact. No fracture or dislocation. 5. Small joint effusion and a popliteal cyst as above. No gross loose bodies. Dictated by: Jonn Lerma M.D. on 06/28/2024 at 11:03 Approved by: Jonn Lerma M.D. on 06/28/2024 at 11:07
== END ==
PROVIDERS: PCP Family Medicine; Referring Provider Nurse Practitioner Family; Visit Provider Nurse Practitioner Family
DX: S83.272A Complex tear of lateral meniscus, current injury, left knee, initial encounter (principal); S83.512A Sprain of anterior cruciate ligament of left knee, initial encounter; S83.412A Sprain of medial collateral ligament of left knee, initial encounter; S83.422A Sprain of lateral collateral ligament of left knee, initial encounter; M94.262 Chondromalacia, left knee; M25.462 Effusion, left knee; M71.22 Synovial cyst of popliteal space [Baker], left knee; M25.562 Pain in left knee; M25.362 Other instability, left knee
CPT/HCPCS: 73721